=== PATIENT | male | born 1990 | race Hispanic/Latino ===

== ENCOUNTER 2017-08-24 16:50 | Emergency (ER) | payer MEDICAID ==
[2017-08-24 16:55] VITALS: BP 154/93; PULSE 107; RESP 18; TEMP 97.3; O2SAT 98
[2017-08-24] MEDS ORDERED: Alum-Mag Hydrox-Simethicone Susp (30 mL) PO STA (17:03)
[2017-08-24] MEDS ORDERED: Sodium Chloride 0.9% 1,000 ML IV STA (17:04)
--- NOTE | 2017-08-24 17:13 | ED PDOC ---
HPI: General Adult Time Seen by Provider: 08/24/17 17:10 Chief Complaint (Nursing): Medical Clearance Chief Complaint (Provider): Medical Clearance History Per: Patient, Other ([place] [employer]) History/Exam Limitations: no limitations Onset/Duration Of Symptoms: Days (x tuesday) Current Symptoms Are (Timing): Still Present Additional Complaint(s): Mr. Coats is a 27 year old male who was brought in under police custody to the emergency department for medical clearance. Patient is complaining of abdominal pain, nausea and hot sweats since Tuesday night (4 days). Patient states he has been having frequent bowel movements all week. Patient reports taking Ibuprofen 600 mg and Zofran this morning. Patient states he got Ibuprofen from a previous medical incident and Zofran from a family friend. Patient is saying he needs something to drink. PMD: No Family Provider Past Medical History Reviewed: Historical Data, Nursing Documentation, Vital Signs Vital Signs: Last Vital Signs Temp 97.3 F L 08/24/17 16:52 Pulse 107 H 08/24/17 16:52 Resp 18 08/24/17 16:52 BP 154/93 H 08/24/17 16:52 Pulse Ox 98 08/24/17 19:24 - Medical History PMH: No Chronic Diseases - Surgical History Surgical History: No Surg Hx - Family History Family History: States: Unknown Family Hx - Home Medications Home Medications: Ambulatory Orders Medication Instructions Recorded Famotidine [Pepcid] 20 mg PO BID PRN #10 tab 08/24/17 - Allergies Allergies/Adverse Reactions: Allergies Allergy/AdvReac Type Severity Reaction Status Date / Time mold Allergy RASH Verified 08/24/17 16:55 ragweed pollen Allergy ITCHING Verified 08/24/17 16:58 Review of Systems ROS Statement: Except As Marked, All Systems Reviewed And Found Negative Constitutional: Positive for: Other (hot sweats) Gastrointestinal: Positive for: Nausea, Abdominal Pain, Other (Frequent bowel movements) Physical Exam - Reviewed Nursing Documentation Reviewed: Yes Vital Signs Reviewed: Yes - Physical Exam Appears: Positive for: Non-toxic Head Exam: Positive for: ATRAUMATIC, NORMAL INSPECTION, NORMOCEPHALIC Skin: Positive for: Normal Color, Warm, Dry Eye Exam: Positive for: Normal appearance, EOMI, PERRL ENT: Positive for: Normal ENT Inspection Neck: Positive for: Normal Cardiovascular/Chest: Positive for: Regular Rate, Rhythm Respiratory: Positive for: Normal Breath Sounds. Negative for: Respiratory Distress Gastrointestinal/Abdominal: Positive for: Tenderness (LUQ) Back: Positive for: Normal Inspection Extremity: Positive for: Normal ROM. Negative for: Deformity Neurologic/Psych: Positive for: Alert, Oriented, Mood/Affect (Cooperative), Other (No tremors) - Laboratory Results Result Diagrams: 08/24/17 17:55 08/24/17 17:55 - ECG O2 Sat by Pulse Oximetry: 98 (RA) Pulse Ox Interpretation: Normal - Progress ED Course And Treament: SEEN BY CRISIS. CLEARED FOR DISCHARGE HOME IN POLICE CUSTODY. NO PYCHIATRIC EMERGENCY NOTED. NS 1 LITER WIDE OPEN MAALOX 30 ML PO X 1 DOS ZOFRAN 4 MG IVX 1 DOSE PATIENT TOLERATING FLUIDS IN ED. Medical Decision Making Medical Decision Making: Time: 17:04 Plan: - CMP - Lipase - Magnesium - CBC - Maalox Plus 30 ml - Sodium Chloride 0.9% 1,000 ml IV 1,000 mls/hr - Zofran Inj Scribe Attestation: Documented by Delgado Mcgarry, acting as a scribe for Josi Contreras PA-C. Provider Scribe Attestation: All medical record entries made by the Scribe were at my direction and personally dictated by me. I have reviewed the chart and agree that the record accurately reflects my personal performance of the history, physical exam, medical decision making, and the department course for this patient. I have also personally directed, reviewed, and agree with the discharge instructions and disposition. Disposition - Clinical Impression Clinical Impression: Gastroenteritis - Patient ED Disposition Is Patient to be Admitted: No - Disposition Disposition: Routine/Home Disposition Time: 19:21 Condition: FAIR Additional Instructions: PATIENT IS MEDICALLY AND PSYCHIATRICALLY CLEARED FOR INCARCERATION Prescriptions: Famotidine [Pepcid] 20 mg PO BID PRN #10 tab PRN Reason: Pain, Moderate (4-7) Instructions: Gastroenteritis (DC), Gastroenteritis (GEN) Forms: [facility] (Japanese)
[2017-08-24] MEDS ORDERED: Alum-Mag Hydrox-Simethicone Susp (30 mL) ONE (17:49)
[2017-08-24 18:07] LABS: BASO % 0.4 % (0.0-2.0); EOS # 0.1 K/uL (0.0-0.7); EOS % 0.7 % (0.0-4.0); HEMOGLOBIN 16.8 g/dL (12.0-18.0); LYMPH # 1.7 K/uL (1.0-4.3); MEAN CELL VOLUME 91.2 fl (80.0-94.0); MEAN CORPUSCULAR HEMOGLOBIN 30.6 pg (27.0-31.0); MEAN CORPUSCULAR HGB CONC 33.6 g/dL (33.0-37.0); MEAN PLATELET VOLUME 9.7 fl (7.2-11.7); MONO # 1.6 K/uL (0.0-0.8); MONO % 12.5 % (0.0-10.0); NEUT # 9.6 K/uL (1.8-7.0); NEUT % 73.4 % (50.0-75.0); NRBC % 0.1 % (0.0-0.0); RBC 5.5 Mil/uL (4.40-5.90); RED CELL DISTRIBUTION WIDTH 12.9 % (11.5-14.5); WHITE BLOOD COUNT 13.1 K/uL (4.8-10.8)
[2017-08-24 18:32] LABS: ALB/GLOB RATIO 1.5 (1.0-2.1); ALBUMIN 4.3 g/dL (3.5-5.0); ALT/SGPT 29 U/L (21-72); AST/SGOT 20 U/L (17-59); BLOOD UREA NITROGEN 13 mg/dl (9-20); CALCIUM 9.3 mg/dL (8.4-10.2); GFR AFRICAN-AMERICAN > 60; GFR NON-AFRICAN AMERICAN > 60; LIPASE 59 U/L (23-300); MAGNESIUM 2.1 MG/DL (1.6-2.3)
== END 2017-08-24 19:45 ==
LOC: H.ER 16:50
DX: K52.9 Noninfective gastroenteritis and colitis, unspecified (principal)
CPT/HCPCS: 80053; 83690; 83735; 85025; 96361; 96374; 99281; J2405; J7040